=== PATIENT | female | born 1975 | race Two or more races ===

== ENCOUNTER → 2024-10-02 | Outpatient (CLI) | payer MEDICAID, SELFPAY ==
--- NOTE | 2024-10-02 15:00 | XR_ITS ---
Examination: Pelvic ultrasound, transabdominal, complete Technique: Transabdominal ultrasound of the pelvis performed using grayscale imaging Date and time of exam: October 02, 2024 1505 hours INDICATIONS: Onset pelvic pain beginning 6 months ago FINDINGS: Uterus 8.9 x 3.6 x 5.3 cm Endometrial stripe 15 mm No uterine mass or intrauterine gestation Right ovary 1.6 x 0.9 x 1.6 cm arterial flow Left ovary obscured by bowel gas IMPRESSION: No uterine mass or intrauterine gestation
--- NOTE | 2024-10-02 15:00 | XR_ITS ---
Examination: Transvaginal ultrasound of the pelvis, complete Technique: Transvaginal sonographic images pelvis performed using hernandez scale imaging Exam date and time: October 02, 2024 1516 hours INDICATIONS: Pelvic pain beginning 6 months ago. FINDINGS: Uterus 7.3 x 3.6 x 4.5 cm Endometrial stripe 0.2 cm No uterine mass or intrauterine gestation Ovaries obscured by bowel gas IMPRESSION: No uterine mass or intrauterine gestation.
== END | disposition home or self-care (01) ==
PROVIDERS: PCP Nurse Practitioner Family; Referring Provider Nurse Practitioner Family; Visit Provider Nurse Practitioner Family
DX: R10.2 Pelvic and perineal pain (principal)
CPT/HCPCS: 76830; 76856